=== PATIENT | female | born 1980 | race Caucasian/White ===

== ENCOUNTER → 2019-01-28 | Outpatient (REF) | payer BC ==
[2019-02-01 14:36] LABS: HPV HYBRID CAPTURE II Negative (Negative)
== END ==
LOC: M LAB LCGH 12:40
PROVIDERS: ATTEND Obstetrics & Gynecology
DX: Z12.4 Encounter for screening for malignant neoplasm of cervix (principal)
CPT/HCPCS: 87624; G0123

== ENCOUNTER → 2023-02-13 | Outpatient (CLI) | payer BC | LOC: M RAD 17:19 | PROVIDERS: ATTEND Physician Assistant Medical | DX: M25.571 Pain in right ankle and joints of right foot (principal) ==